=== PATIENT | female | born 1945 | race Caucasian/White ===

== ENCOUNTER → 2017-08-12 | Outpatient (CLI) | payer OTHER ==
[~2017-08-12] MED LIST: ANAS1TAB7 PO; ASPI81TA28 PO; B-COTAB18 PO; BIOT1TAB5 PO; CALC600T9 PO; FLUT0.15; HYDR2.5L TOP; IBUP-1459 PO; LISI10TA PO; MAGN400T6 PO; OMEG10007 PO
[2017-08-12 14:41] VITALS: BP 130/80; PULSE 72; TEMP 36.3; O2SAT 97
--- NOTE | 2017-08-12 16:30 | Radiation Oncology Follow-Up ---
Radiation Oncology Follow-Up Date of Visit Aug 12, 2017. 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 She received 5130 centigrade utilizing hypo-fractionation. Last Edited By: Elsa Montague on Jul 15, 2017 11:16 History of Present Illness Ms. Winters is a postmenopausal female who recently self palpated a left breast mass. She denied any tenderness to palpation or any nipple discharge or nipple bleeding. 03/11/2017 - Diagnostic Bilateral Mammograms - Left Breast: An approximately 1.2 cm focal asymmetry is seen medial to the nipple in the 9:00 retroareolar region on mammogram corresponding to patient's palpable lump. Targeted ultrasound demonstrates a 1.2 cm hypoechoic mass, inseparable from nipple areola complex. Right breast findings are unremarkable. 04/02/2017 - Bilateral MRI of breast - IMPRESSION: Left: 15 x 13 x 16 mm sub areolar lesion with nipple retraction suspicious for carcinoma. This corresponds to the lesion seen by recent ultrasound and mammogram. Biopsy is recommended. BI-RADS 5. Right: Central middle -posterior depth 11 o'clock enhancing focus. BI-RADS 3. Six-month follow-up MRI recommended. 04/16/2017 - Excisional biopsy of left breast mass at [address] Autumn Marquez - invasive ductal carcinoma, grade 3. Tumor measures 1.6 cm in greatest dimension. Invasive carcinoma extends to inferior, anterior, lateral, medial and less than 0.1 cm from posterior margin. Margins positive for DCIS. Margins positive for invasive carcinoma. Tumor is estrogen receptor positive, progesterone receptor positive and HER-2 negative. 05/07/2017 - Left breast lumpectomy and sentinel lymph node biopsy by Dr. Auutmn Marquez - residual invasive ductal carcinoma, grade 3. Tumor measures 0.8 cm in thickness, within the dermis of the nipple. All resection margins free of carcinoma. No LVSI. [place] lymph nodes negative for metastatic carcinoma. 05/07/2017 - Oncotype DX test - recurrence score of 8 - "low risk" category. 05/27/2017 - medical oncology consultation with Dr. Erick Hawkins - Dr. Hawkins recommended no chemotherapy based on the Oncotype DX score. He did recommend adjuvant hormonal therapy following the completion of radiation therapy. We are now seeing the patient in consultation discussed role of radiation therapy. Currently, the patient is doing relatively well overall. She has no complaints. She underwent a CT simulation was found to be a candidate for hypo- fractionation. Radiation was completed July 09, 2017. She received 5130 cGy. Interim History She has been doing well over the past month. She did have some peeling of the skin and dryness. There was soreness that resolved. She denies any problems with breast pain. She is noted no swelling of the breast and no changes of the axilla. She has had no swelling of her arm. She has been seen in follow-up by her breast surgeon and mammography is scheduled. She also also scheduled for a recheck MRI of the breasts September 25, 2017. She was started on a aromatase inhibitor. She denies side effects. Allergies Uncoded Allergies: [id number] (Allergy, Unknown, None, 03/27/16) Home Medications Scheduled Anastrozole (Anastrozole), 1 TAB PO DAILY Aspirin (Aspirin Ec), 81 MG PO DAILY B-Complex Vitamins (Vitamin B Complex), 1 TAB PO DAILY Biotin (Biotin), 1 TAB PO DAILY Calcium Carbonate-Vitamin D (Calcium + D), 1 TAB PO BID Fish Oil ([place]-3), 2 CAP PO DAILY Fluticasone Propionate (Nasal) (Flonase Allergy Relief), 2 SPRAYS NA DAILY Lisinopril (Prinivil), 10 MG PO DAILY Magnesium Oxide (Mag-Ox), 400 MG PO DAILY Scheduled PRN Hydrocortisone (Topical) (Hydrocortisone), 1 APPLN TOP TID PRN for Affected Skin Folds Ibuprofen (Motrin), 400 MG PO Q6H PRN for Pain Review of Systems Gastrointestinal: Symptoms: WNL Oral: Symptoms: No Problems Other Oral Symptoms: toothache Respiratory: Symptoms: WNL Urinary: Symptoms: WNL Skin: Symptoms: No Problems Breast: Right Upper Arm Measurement: 28.0 Right Mid Arm Measurement: 23.0 Right Wrist Measurement: 15.5 Left Upper Arm Measurement: 27.0 Left Mid Arm Measurement: 21.5 Left Wrist Measurement: 15.5 Arm Dominence: Right Additional Notes: She completed a distress management report and answered "no" to all questions other than she is concerned about money. Physical Exam Vital Signs Date Time Temp Pulse Resp B/P (MAP) Pulse Ox O2 Delivery O2 Flow Rate FiO2 08/12/17 14:41 36.3 72 20 130/80 97 ECOG Performance Status: 0 General Appearance: no apparent distress Eyes: normal inspection, EOMI ENT: normal ENT inspection, hearing grossly normal Neck: no adenopathy, thyroid normal Respiratory/Chest: lungs clear, no respiratory distress, no accessory muscle use Breast: Examination of the left breast shows the nipple areolar complex to be absent. There are no masses or tenderness and no axillary adenopathy. There are mild fibrous changes along the central portion of the incision. There is mild resolving hyperpigmentation. There are no skin retractions. She has no changes of the axilla. Using the Hamilton score cosmesis she has a good outcome. The right breast showed no masses or tenderness and no axillary adenopathy. Cardiovascular: regular rate, rhythm, no gallop, no murmur Extremities: no pedal edema Neurologic/Psychiatric: no motor/sensory deficits, alert, normal mood/affect Skin: warm/dry Pain Management Patient Reports Pain: No Pain Location: None Patient Preferred Pain Scale: 0 - 10 Initial Pain Intensity: 0.0 Pain Management Plan She denies pain therefore requires no pain management. Laboratory Laboratory Results: not applicable Pathology Pathology Results: were reviewed, and pertinent findings noted in HPI Imaging Imaging Studies: not applicable Assessment & Plan Plan: Continue regular follow-up with her breast surgeon and scheduled studies. She will be having a breast MRI September 25, 2017. She will have a mammogram October 23, 2017. She will then see the breast surgeon November 13, 2017 continue follow-up with medical oncology. She will be seeing Dr. Hawkins November 25, 2017. She continues on the aromatase inhibitor. Today we completed a cancer survivorship care plan. A copy of the document was given to the patient. She was given a survivorship booklet. We asked her to return to our office in 6 months. She may call if she has any questions or concerns in the interim. Total Time In Follow-Up I spent 20 minutes speaking to the patient in performing examination. I spent 20 minutes reviewing information, preparing the survivorship document, and completing this note. Copy To Glenn Alvarado MD; Autumn Marquez MD; Erick Hawkins M.D.
== END | disposition home or self-care (01) ==
LOC: C.ONC 14:30
PROVIDERS: ATTEND Physician Assistant Medical
DX: Z08 Encounter for follow-up examination after completed treatment for malignant neoplasm (principal); Z92.3 Personal history of irradiation; Z85.3 Personal history of malignant neoplasm of breast